=== PATIENT | male | born 1960 | race Caucasian/White ===

== ENCOUNTER 2023-08-11 15:28 | Emergency (ER) | payer BC, SELFPAY ==
[2023-08-11 15:32] VITALS: BP 122/73
[2023-08-11 15:57] LABS: % Basophils 0.5 % (0-2); % Eosinophils 2.9 % (0-6); % Immature Granulocytes 0.3 % (0-0.5); % Lymphocytes 30.7 % (20.5-51.1); % Monocytes 6.9 % (1.7-9.3); % Neutrophils 58.7 % (42.2-75.2); Absolute Eosinophils 0.2 10^3/uL (0-0.7); Absolute Monocytes 0.5 10^3/uL (0.1-0.6); Absolute Neutrophils 3.9 10^3/uL (1.4-6.5); Hemoglobin 16.8 g/dL (13.0-18.0); Mean Corp Hgb Conc. 35.7 g/dL (33.0-37.0); Mean Corpuscular Hgb 31.9 pg (27.0-31.0); Mean Corpuscular Volume 89.4 fL (80.0-94.0); Nucleated Red Blood Cells % 0 % (-); Platelet Count 185 10^3/uL (130-400); Red Blood Cell Count 5.26 10^6/uL (4.70-6.10); Red Cell Dist. Width 13.1 % (11.5-14.5); White Blood Cell Count 6.6 10^3/uL (4.8-10.8)
[2023-08-11 16:10] LABS: ALT (SGPT) 33 U/L (0-50); AST (SGOT) 32 U/L (17-59); Albumin 4.3 g/dl (3.5-5.0); Alkaline Phosphatase 89 U/L (38-126); Blood Urea Nitrogen 20 mg/dl (9-20); Carbon Dioxide 30 mmol/L (22-30); Chloride 101 mmol/L (98-107); Glucose 162 mg/dl (70-99); Potassium 3.7 mmol/L (3.5-5.1); Sodium 136 mmol/L (135-145); Total Bilirubin 1.6 mg/dl (0.2-1.3); Total Protein 6.7 g/dl (6.3-8.2); eGFR > 60.00
[2023-08-11 17:33] VITALS: BP 127/88
--- NOTE | 2023-08-11 18:14 | ED.GENMED ---
History of Present Illness
<Carolyn Farmer, QUALITY AUDIT REPRESENTATIVE - Last Filed: 08/11/23 22:44>
General
Chief Complaint: Heart Rate Problem
Source: patient
Exam Limitations: none
Time Seen by Provider: 08/11/23 17:44
Nursing documentation reviewed up to this point in time: agreed with
Travel History
Have you had any contact with someone who has COVID-19?: No
Do you have any symptoms of coronavirus? Fever > 100 degrees, chills, cough, shortness of breath, sore throat, loss of taste or smell, muscle aches, or headache?: No
History of Present Illness
History of Present Illness:
62-year-old male with history of CA and 2 cardiac stents 2020, HTN, HLD was having a colonoscopy earlier today and during his colonoscopy it was noted that he went into atrial fibrillation. So they sent him here for evaluation. Patient denies
chest pain, SOB, palpitations. The colonoscopy unit arranged for him to see a piece hand from [facility] at 8 AM tomorrow morning.
Patient takes aspirin and Brilinta
Past History
<Carolyn Farmer QUALITY AUDIT REPRESENTATIVE - Last Filed: 08/11/23 22:44>
Past History
ED Past Medical History: HTN, Hypercholesterolemia, CA (11/2020) and Other (Hypertension)
ED Past Surgical History: Cardiac (Stents 11/2020) and Orthopedic
Social History
Tobacco: Former smoker
Personal:
Living: with family
Review of Systems
<Carolyn Farmer, QUALITY AUDIT REPRESENTATIVE - Last Filed: 08/11/23 22:44>
Review of Systems
Allergies reviewed?: Yes
All Other Systems: ROS reviewed and negative except as documented in HPI and ROS
Constitutional: Denies fever or fatigue
Respiratory: Denies trouble breathing
Cardiac: Reports other (Sent here because he went into atrial fibrillation during his colonoscopy earlier today); Denies chest pain, diaphoresis or palpitations
ABD/GI: Denies abdominal pain, nausea or vomiting
: Denies dysuria or difficulty voiding
Musculoskeletal: Reports no symptoms
Skin: Reports no symptoms
Neurological: Reports no symptoms
Phy Exam
<Carolyn Farmer NP - Last Filed: 08/11/23 22:44>
Physical Exam
Physical Exam:
GENERAL: No acute distress. A&Ox3.
CONSTITUTIONAL: Afebrile.
EYES: Clear, conjunctivae normal
ENMT: moist mucus membranes, Pharynx nl
RESPIRATORY: Regular respirations, nonlabored, lungs clear.
CARDIOVASCULAR: Irregular but controlled rate, irregular rhythm, no murmurs, no rubs.
GI: Soft, nontender, normal BS
MUSCULOSKELETAL: Moves with ease. Well perfused. No edema
SKIN: Warm, dry, pink
PSYCH: Normal mood and affect. Well kept, interactive and appropriate
NEUROLOGIC: Awake, alert and oriented. No focal neurological deficits
Scores
<Carolyn Farmer QUALITY AUDIT REPRESENTATIVE - Last Filed: 08/11/23 22:44>
[id number] Score for Afib Stroke Risk
Score: 2
Anticoagulation Recommendations: Recommend anticoagulation (as validated in nonvalvular fib)
<Ck Malcolm MD - Last Filed: 08/13/23 07:18>
[id number] Score for Afib Stroke Risk
Age in Years (65=0, 65-74=1, >/=75=2): <65
Sex (Female=+1): Male
Congestive Heart Failure History (Yes=+1): No
Hypertension History (Yes=+1): Yes
Stroke/TIA/Thromboembolism History (Yes=+2): No
Vascular Disease History (Yes=+1): Yes
Diabetes Mellitus (Yes=+1): No
Score: 2
Anticoagulation Recommendations: Recommend anticoagulation (as validated in nonvalvular fib)
Course
<Carolyn Farmer NP - Last Filed: 08/11/23 22:44>
Orders/Labs/Results
Orders:
Orders
08/11/23 15:38
Electrocardiogram (*1) Urgent
Reason for Study: Tachycardia
EKG- Treatment ONCE
08/11/23 15:49
Complete Blood Count/With Diff Urgent
Comprehensive Metabolic Panel Urgent
08/11/23 17:46
Troponin I Urgent
08/11/23 18:34
Electrocardiogram (*1) Urgent
Reason for Study: Abnormal EKG
EKG- Treatment ONCE
08/11/23 19:05
Apixaban [Eliquis] 10 mg PO NOW STA
Abnormal Lab Results
08/11/23
15:49
MCH 31.9 H pg
(27.0-31.0)
Glucose 162 H mg/dl
(70-99)
Total Bilirubin 1.6 H mg/dl
(0.2-1.3)
08/11/23 15:49
08/11/23 15:49
Vital Signs
Initial and Last Documented VS:
Initial Vital Signs
Temp Pulse Resp BP Pulse Ox
97.8 F 86 18 122/73 97
08/11/23 15:32 08/11/23 15:32 08/11/23 15:32 08/11/23 15:32 08/11/23 15:32
Last Documented Vital Signs
Temp Pulse Resp BP Pulse Ox
97.8 F 70 12 127/88 98
08/11/23 15:32 08/11/23 19:00 08/11/23 19:00 08/11/23 17:33 08/11/23 19:00
<Ck Malcolm MD - Last Filed: 08/13/23 07:18>
Orders/Labs/Results
Orders:
Orders
08/11/23 15:38
Electrocardiogram (*1) Urgent
Reason for Study: Tachycardia
EKG- Treatment ONCE
08/11/23 15:49
Complete Blood Count/With Diff Urgent
Comprehensive Metabolic Panel Urgent
08/11/23 17:46
Troponin I Urgent
08/11/23 18:34
Electrocardiogram (*1) Urgent
Reason for Study: Abnormal EKG
EKG- Treatment ONCE
08/11/23 19:05
Apixaban [Eliquis] 10 mg PO NOW STA
Abnormal Lab Results
08/11/23
15:49
MCH 31.9 H pg
(27.0-31.0)
Glucose 162 H mg/dl
(70-99)
Total Bilirubin 1.6 H mg/dl
(0.2-1.3)
08/11/23 15:49
08/11/23 15:49
Vital Signs
Initial and Last Documented VS:
Initial Vital Signs
Temp Pulse Resp BP Pulse Ox
97.8 F 86 18 122/73 97
08/11/23 15:32 08/11/23 15:32 08/11/23 15:32 08/11/23 15:32 08/11/23 15:32
Last Documented Vital Signs
Temp Pulse Resp BP Pulse Ox
97.8 F 70 12 127/88 98
08/11/23 15:32 08/11/23 19:00 08/11/23 19:00 08/11/23 17:33 08/11/23 19:00
Carloslt;Carolyn Farmer, QUALITY AUDIT REPRESENTATIVE - Last Filed: 08/11/23 22:44>
MDM/Problems Addressed
Differential Diagnosis Includes:
new onset a fib
MDM/Problems Addressed:
62-year-old male with history of CA and 2 cardiac stents 2020, HTN, HLD was having a colonoscopy earlier today and during his colonoscopy it was noted that he went into atrial fibrillation. So they sent him here for evaluation. Patient denies
chest pain, SOB, palpitations. The colonoscopy unit arranged for him to see a piece hand from [facility] at 8 AM tomorrow morning.
Patient takes aspirin and Brilinta
Vital signs stable patient asymptomatic,
EKG shows heart rate of 89, atrial fib/flutter
Case discussed with Dr. Malcolm who evaluated patient
08/11/2023 1904 PM
[facility] [address] piece hand Dr. Altamirano who read EKG, would like patient started on Eliquis and agrees he can f/u tomorrow
<Carolyn Farmer NP - Last Filed: 08/11/23 22:44>
*Critical Care Note
Total Time (30-74mins, 75-104mins- exclusive of procedures): Not Applicable
ED Attending Note
<Carolyn Farmer NP - Last Filed: 08/11/23 22:44>
-
Portions of this chart may have been created with voice recognition software.� Occasional wrong word or��sound alike� substitutions may have occurred due to the inherent limitations of voice recognition software.
<Ck Malcolm MD - Last Filed: 08/13/23 07:18>
ED Attending Note
Patient seen and examined by attending physician: Yes
I performed the substantive portion of visit, reviewed & personally made and approve the management plan that is documented in note by myself or MADHAVI.: Yes
ED Attending Note:
Patient noted to be in atrial fibrillation during a routine colonoscopy. No symptoms. On metoprolol.
On exam patient is nontoxic in no distress. Lungs are clear and equal. Heart regular rate and rhythm. Monitor initially showed atrial fibrillation then converted to normal sinus rhythm. Eamon Vascor 1-2. Rate controlled. Eliquis started and
will follow-up tomorrow.
Discharge Plan
Departure
Patient Disposition: Home (Routine Discharge)
Date of Disposition: 08/11/23
Time of Disposition: 19:06
Patient with high blood pressure during this ER visit?: No
Condition: Good
Discharge Problem:
New onset a-fib
Instructions: Atrial Fibrillation (DC), Apixaban
Prescriptions:
New
Eliquis 5 mg tablet
5 mg PO BID Qty: 70 0RF
Rx Instructions:
take 10 mg BID x 7 days then 5 mg BID
No Action
cholecalciferol (vitamin D3) 1,000 UNITS tablet
1,000 units PO DAILY
multivitamin with folic acid [Tab-A-Alysia] 1 TABLET tablet
1 tab PO DAILY
atorvastatin 80 MG tablet
80 mg PO QPM Qty: 90 5RF
aspirin 81 MG tablet,chewable
81 mg PO DAILY 0RF
lisinopril 5 MG tablet
5 mg PO DAILY Qty: 90 5RF
metoprolol succinate 25 MG tablet extended release 24 hr
25 mg PO DAILY Qty: 90 5RF
Referrals:
Odessa Wells, DO [Family Provider] -
Activity Restrictions/Additional Instructions:
As we discussed, I sent a prescription to your pharmacy for the Eliquis. Started tomorrow you were given a dose here today.
Keep your cardiology appointment for tomorrow.
Return immediately for chest pain, palpitations, feeling weak or dizzy or feeling worse in any way.
Interventions
Interventions:
*Risk Screen - Suicide Last Done: 08/11/23 15:32
*General Assessment Last Done: 08/11/23 15:32
*Neglect/Abuse Screening Last Done: 08/11/23 15:32
ED- Fall Risk Assessment Last Done: 08/11/23 17:49
*Nursing Disposition Last Done: 08/11/23 19:35
ED- Cardiac Assessment Last Done: 08/11/23 17:49
ED- Pulmonary Assessment Last Done: 08/11/23 17:49
Discharge Date and Time
Discharge Date/Time: 08/11/23 19:36
[2023-08-11 18:18] LABS: Troponin I < 0.012 ng/ml
[2023-08-11] MEDS: ELIQUIS 10 MG PO (19:13)
== END 2023-08-11 19:36 | disposition home or self-care (01) ==
LOC: EMR 15:28
PROVIDERS: Registered Nurse; EMERGENCY PHYSICIAN Emergency Medicine; FAMILY PHYSICIAN Family Medicine
DX: I48.91 Unspecified atrial fibrillation (principal); R42 Dizziness and giddiness; I10 Essential (primary) hypertension; E78.00 Pure hypercholesterolemia, unspecified; I25.2 Old myocardial infarction; Z79.82 Long term (current) use of aspirin; Z95.5 Presence of coronary angioplasty implant and graft; Z87.891 Personal history of nicotine dependence; Z98.890 Other specified postprocedural states
CPT/HCPCS: 99284; 80053; 84484; 85025; 93005